=== PATIENT | female | born 2000 | race Hispanic/Latino ===

== ENCOUNTER 2023-09-01 01:56 | Emergency (ER) | payer OTHER ==
[~2023-09-01] VITALS: Ht 149.9 cm; Wt 65.8 kg
[2023-09-01 03:10] LABS: BASOPHILS # (AUTO) 0.1 (0.0-0.1); BASOPHILS % 1.8 % (0.0-1.0); EOSINOPHILS # (AUTO) 0.3 (0.0-0.4); EOSINOPHILS % 4.4 % (0.0-6.0); HEMATOCRIT 34.7 % (34.2-44.1); HEMOGLOBIN 11.1 g/dL (12.0-16.0); LYMPHOCYTES # (AUTO) 2.5 (1.0-3.2); LYMPHOCYTES % 36.4 % (18.0-39.1); MEAN CORPUSCULAR VOLUME 103.3 fL (81-99); MONOCYTES # (AUTO) 0.5 (0.2-0.8); MONOCYTES % 7.7 % (4.4-11.3); NEUTROPHILS # (AUTO) 3.4 (2.1-6.9); NEUTROPHILS % 49.4 % (38.7-80.0); PLATELET COUNT 275 x10e3/uL (140-360); RED BLOOD COUNT 3.36 x10e6/uL (3.6-5.1); RED CELL DISTRIBUTION WIDTH 12.8 % (11.7-14.4); WHITE BLOOD COUNT 6.85 x10e3/uL (4.8-10.8)
[2023-09-01 03:21] LABS: ALBUMIN 4.1 g/dL (3.5-5.0); ALBUMIN/GLOBULIN RATIO 1.5 (0.8-2.0); ANION GAP 14.1 mmol/L (8-16); BILIRUBIN,TOTAL 0.8 mg/dL (0.2-1.2); CALCIUM 8.9 mg/dL (8.4-10.2); CREATININE, SERUM 0.67 mg/dL (0.57-1.11); POTASSIUM 4.1 mmol/L (3.6-4.7); TOTAL PROTEIN 6.8 g/dL (6.5-8.1)
[2023-09-01 04:06] LABS: BILIRUBIN,URINE SMALL (NEGATIVE); CLARITY,URINE CLOUDY (CLEAR); COLOR,URINE YELLOW (YELLOW); GLUCOSE, URINE NEGATIVE (NEGATIVE); KETONES,URINE NEGATIVE (NEGATIVE); LEUKOCYTE ESTERASE ,URINE NEGATIVE (NEGATIVE); NITRITE,URINE NEGATIVE (NEGATIVE); PH,URINE 6 (5 - 7); PROTEIN,URINE DIPSTICK 2+ (NEGATIVE); URINE UROBILINOGEN 1 mg/dL (0.2 - 1)
[2023-09-01 04:07] LABS: PREGNANCY TEST, URINE NEGATIVE (NEGATIVE)
[2023-09-01 04:09] LABS: AMPHETAMINES SCREEN,URINE NEGATIVE (NEGATIVE); METHADONE SCREEN, URINE NEGATIVE (NEGATIVE); OPIATES SCREEN,URINE NEGATIVE (NEGATIVE); PHENCYCLIDINE SCREEN,URINE NEGATIVE (NEGATIVE)
[2023-09-01 04:10] LABS: BENZODIAZEPINES SCREEN,URINE POSITIVE (NEGATIVE); CANNABINOIDS SCREEN,URINE POSITIVE (NEGATIVE)
[2023-09-01 04:35] LABS: BACTERIA,URINE MANY /HPF; EPITHELIAL CELLS,URINE MODERATE /LPF; WBC,URINE (MAN) 0-5 /HPF (0-5)
[2023-09-01 05:05] VITALS: O2SAT 100
== END 2023-09-01 05:00 | disposition home or self-care (01) ==
LOC: ER 02:03
DX: R53.1 Weakness (principal); F13.10 Sedative, hypnotic or anxiolytic abuse, uncomplicated; F14.10 Cocaine abuse, uncomplicated; F12.10 Cannabis abuse, uncomplicated; G40.909 Epilepsy, unspecified, not intractable, without status epilepticus; F41.9 Anxiety disorder, unspecified; Z20.822 Contact with and (suspected) exposure to COVID-19
CPT/HCPCS: 36415; 80053; 80307; 81001; 81025; 85025; 87400; 99283; U0002